=== PATIENT | female | born 1990 | race Two or more races ===

== ENCOUNTER 2019-09-04 12:40 | Outpatient (CLI) | payer OTHER ==
[2019-09-06] MEDS ORDERED: PRENATAL PO (08:21)
== END 2019-09-04 13:55 | disposition home or self-care (01) ==
LOC: NST 12:40
DX: Z34.83 Encounter for supervision of other normal pregnancy, third trimester (principal)

== ENCOUNTER 2019-09-20 06:00 | Inpatient (IN) | payer OTHER ==
[~2019-09-20] VITALS: Ht 162.6 cm; Wt 3.6 kg
[~2019-09-20 06:00] MED LIST: PRENATAL PO
[2019-09-20] MEDS ORDERED: PRENATAL + DHA1 EAC1 PO (07:57)
[2019-09-20] MEDS ORDERED: IRON325 MG PO (07:59)
== END 2019-09-23 10:54 | DRG 785 ==
LOC: O/R 06:00 → OB/GYN 09:15 → SURG-SUITE 09:34 → OB/GYN 12:05
PROVIDERS: ADMIT Obstetrics & Gynecology
PROC: 0UB70ZZ Excision of Bilateral Fallopian Tubes, Open Approach (ICD-10-PCS; 2019-09-20)
PROC: 4A1HXCZ Monitoring of Products of Conception, Cardiac Rate, External Approach (ICD-10-PCS; 2019-09-20)
PROC: 10D00Z1 Extraction of Products of Conception, Low, Open Approach (ICD-10-PCS; principal; 2019-09-20 09:15)
DX: O82 Encounter for cesarean delivery without indication (principal); O34.211 Maternal care for low transverse scar from previous cesarean delivery; Z30.2 Encounter for sterilization; Z3A.39 39 weeks gestation of pregnancy; Z37.0 Single live birth